=== PATIENT | female | born 2005 | race African-American/Black ===

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

== ENCOUNTER 2023-09-11 03:22 | Emergency (ER) | payer MEDICAID ==
[2023-09-11 05:33] VITALS: BP 125/78; PULSE 102; RESP 18; TEMP 97.8
[2023-09-11 07:05] LABS: CLARITY URINE CLEAR (CLEAR); COLOR URINE YELLOW (YELLOW); GLUCOSE URINE NEGATIVE (NEGATIVE); KETONES URINE NEGATIVE (NEGATIVE); LEUKOCYTE ESTERASE URINE NEGATIVE (NEGATIVE); NITRITE URINE NEGATIVE (NEGATIVE); OCCULT BLOOD URINE 1+ (NEGATIVE); PROTEIN URINE NEGATIVE (NEGATIVE); SPECIFIC GRAVITY URINE 1.002 (1.005-1.030); UROBILINOGEN URINE 0.2 E.U./dL (0.2-1.0)
[2023-09-11 07:06] LABS: BASOPHILS % 0.2 % (0.0-2.0); DIFFERENTIAL COMMENT 0; EOSINOPHILS % 0.2 % (0.0-5.0); HEMATOCRIT. 37.4 % (36.0-48.0); LYMPHOCYTES % 8.6 % (20.0-50.0); MEAN CORPUSCULAR HGB CONC 31.9 g/dL (31.0-37.0); MEAN PLATELET VOLUME 10.5 fl (7.4-10.4); MONOCYTES % 6.5 % (2.0-8.0); NEUTROPHILS % 84.5 % (40.0-76.0); PLATELET 190 x1000/uL (130-400); RED CELL DISTRIBUTION WIDTH 17.6 % (11.6-14.6); WHITE BLOOD COUNT 11.6 x1000/uL (4.5-11.0)
[2023-09-11 07:22] LABS: ALANINE AMINOTRANSFERASE 8 IU/L (10-49); ALBUMIN 5.1 g/dL (3.2-4.8); ASPARTATE AMINOTRANSFERASE 20 IU/L (<34); BILIRUBIN TOTAL 0.3 mg/dL (0.1-1.0); CALCIUM 9.7 mg/dL (8.7-10.4); CARBON DIOXIDE 30 mEq/L (21-32); CHLORIDE 100 mEq/L (98-107); GLUCOSE 99 mg/dL (70-105); POTASSIUM 3.7 mEq/L (3.5-5.1); SODIUM 139 mEq/L (136-145); UREA NITROGEN BLOOD 34 mg/dL (9-23)
[2023-09-11 07:22] LABS: RBC URINE NONE SEEN /hpf (0-2); WBC URINE NONE SEEN /hpf (0-2)
[2023-09-11 07:23] LABS: CREATININE 6.7 mg/dL (0.6-1.0)
[2023-09-11 07:23] LABS: BACTERIA URINE NONE SEEN; SQUAMOUS EPITHELIAL CELL URINE RARE /lpf (RARE/1+)
[2023-09-11 07:30] LABS: TROPONIN I HIGH SENSITIVITY < 4 ng/L (3.0-34)
== END 2023-09-11 08:30 | disposition home or self-care (01) ==
LOC: ER 03:22
DX: R07.89 Other chest pain (principal)
CPT/HCPCS: 36415; 71045; 80053; 81003; 83605; 84484; 85025; 85379; 99284

== ENCOUNTER 2023-09-13 00:14 | Emergency (ER) | payer MEDICAID ==
[~2023-09-13] VITALS: Ht 165.1 cm; Wt 49.0 kg
[2023-09-13] MEDS ORDERED: MORPHINE SULFATE 4 MG/ML CPJ (NOT FOR IM USE) IV STA (00:23)
[2023-09-13] MEDS ORDERED: ONDANSETRON HCL 4MG/2ML INJ IV STA (00:23)
[2023-09-13 00:25] VITALS: BP 128/88; RESP 18; TEMP 98.5; O2SAT 100
[2023-09-13 00:27] VITALS: PULSE 133
[2023-09-13] MEDS ORDERED: SODIUM CHLORIDE 0.9% 1,000 ML IV ONE (00:30)
[2023-09-13 02:03] LABS: CLARITY URINE CLEAR (CLEAR); COLOR URINE YELLOW (YELLOW); GLUCOSE URINE NEGATIVE (NEGATIVE); KETONES URINE NEGATIVE (NEGATIVE); LEUKOCYTE ESTERASE URINE NEGATIVE (NEGATIVE); NITRITE URINE NEGATIVE (NEGATIVE); OCCULT BLOOD URINE NEGATIVE (NEGATIVE); PH URINE 7.5 (4.5-8.0); PROTEIN URINE NEGATIVE (NEGATIVE); SPECIFIC GRAVITY URINE 1.004 (1.005-1.030); UROBILINOGEN URINE 0.2 E.U./dL (0.2-1.0)
== END 2023-09-13 03:08 | disposition home or self-care (01) ==
LOC: ER 00:14
DX: K21.9 Gastro-esophageal reflux disease without esophagitis (principal)
CPT/HCPCS: 81003; 76770; 99284; J7030; Z7610